=== PATIENT | female | born 1990 | race Caucasian/White ===

== ENCOUNTER → 2016-05-28 | Outpatient (CLI) | payer BC ==
[~2016-05-28] MED LIST: DOCU50LI12 PO; IBUP-1547 PO; ONDA4TAB4 PO; OXYC1TAB8 PO; PREN-92 PO
--- NOTE | 2016-05-28 14:38 | DI ---
Indication: ITS.REASON: 280.8 HYPERTHYROID, FAMILY HX THYROID CA PROCEDURE: US THYROID: Encounter: Initial Comparison: None Technique: Grayscale and color Doppler sonographic imaging of the thyroid gland was performed. Findings: Right thyroid lobe is sonographically normal without focal nodule or mass. The thyroid isthmus is normal measuring 0.2 cm in diameter. Left thyroid lobe is also homogeneous without focal nodule or mass. Normal Doppler flow to both thyroid lobes. Right lobe measures 4.5 x 1.5 x 1.8 cm. Left thyroid lobe measures 4.2 x 1.4 x 2.1 cm. Impression: Normal exam. .
== END ==
LOC: IMA 12:54
PROVIDERS: ATTEND Physician Assistant
DX: E03.9 Hypothyroidism, unspecified (principal); Z80.8 Family history of malignant neoplasm of other organs or systems